=== PATIENT | female | born 2000 ===

== ENCOUNTER → 2022-09-23 | Outpatient (CLI) | payer OTHER ==
[2022-09-23 14:57] LABS: Hepatitis B Surface Antibody Negative (Negative)
== END | disposition home or self-care (01) ==
LOC: LAB 10:38
PROVIDERS: ATTEND Family Medicine
DX: T14.90XA Injury, unspecified, initial encounter (principal); W46.1XXA Contact with contaminated hypodermic needle, initial encounter; Y93.89 Activity, other specified; Y92.89 Other specified places as the place of occurrence of the external cause; Y99.8 Other external cause status
CPT/HCPCS: 36415; 86703; 86706; 86803; 87340

== ENCOUNTER → 2022-12-08 | Outpatient (CLI) | payer OTHER ==
[2022-12-09 15:54] LABS: Hepatitis B Surface Antibody Negative (Negative); Hepatitis B Surface Antigen Negative (Negative)
== END | disposition home or self-care (01) ==
LOC: LAB 14:40
PROVIDERS: ATTEND Family Medicine
DX: Z77.21 Contact with and (suspected) exposure to potentially hazardous body fluids (principal)
CPT/HCPCS: 36415; 86703; 86706; 86803; 87340

== ENCOUNTER → 2023-03-23 | Outpatient (CLI) | payer OTHER ==
[2023-03-24 09:12] LABS: Hepatitis B Surface Antibody Positive (Negative)
[2023-03-24 09:25] LABS: Hepatitis B Surface Antigen Negative (Negative)
== END | disposition home or self-care (01) ==
LOC: LAB 11:48
PROVIDERS: ATTEND Family Medicine
DX: Z20.9 Contact with and (suspected) exposure to unspecified communicable disease (principal); S61.239D Puncture wound without foreign body of unspecified finger without damage to nail, subsequent encounter; X58.XXXD Exposure to other specified factors, subsequent encounter
CPT/HCPCS: 36415; 86703; 86706; 86803; 87340

== ENCOUNTER 2023-08-14 12:45 | Emergency (ER) | payer OTHER ==
[~2023-08-14] VITALS: Ht 152.4 cm; Wt 45.3 kg
[2023-08-14] MEDS ORDERED: RALT400T PO (13:18)
[2023-08-14] MEDS ORDERED: TENO300T9 PO (13:18)
[2023-08-14] MEDS ORDERED: EMTR200C5 PO (13:18)
[2023-08-14 13:27] VITALS: BP 111/76; PULSE 75; RESP 18; TEMP 97.8; O2SAT 99
[2023-08-14 13:48] LABS: Hepatitis B Surface Antibody Positive (Negative)
[2023-08-15 15:13] LABS: Hepatitis B Surface Antigen Negative (Negative)
== END 2023-08-14 13:35 | disposition home or self-care (01) ==
LOC: ER 12:45
DX: T14.90XA Injury, unspecified, initial encounter (principal); Z77.21 Contact with and (suspected) exposure to potentially hazardous body fluids; Z79.899 Other long term (current) drug therapy; W46.0XXA Contact with hypodermic needle, initial encounter; Y93.89 Activity, other specified; Y92.89 Other specified places as the place of occurrence of the external cause; Y99.0 Civilian activity done for income or pay
CPT/HCPCS: 36415; 86703; 86706; 86803; 87340

== ENCOUNTER → 2023-09-27 | Outpatient (CLI) | payer OTHER ==
[~2023-09-27] MED LIST: EMTR200C5 PO; RALT400T PO; TENO300T9 PO
[2023-09-29 08:30] LABS: Hepatitis B Surface Antibody Positive (Negative)
[2023-09-29 08:42] LABS: Hepatitis B Surface Antigen Negative (Negative)
== END | disposition home or self-care (01) ==
LOC: LAB 13:07
PROVIDERS: ATTEND Family Medicine
DX: Z00.00 Encounter for general adult medical examination without abnormal findings (principal); W46.1XXA Contact with contaminated hypodermic needle, initial encounter; Y93.89 Activity, other specified; Y92.89 Other specified places as the place of occurrence of the external cause; Y99.8 Other external cause status
CPT/HCPCS: 36415; 86703; 86706; 86803; 87340

== ENCOUNTER → 2024-02-14 | Outpatient (CLI) | payer OTHER ==
[2024-02-16 08:58] LABS: Hepatitis B Surface Antibody Positive (Negative)
[2024-02-16 09:09] LABS: Hepatitis B Surface Antigen Negative (Negative)
== END | disposition home or self-care (01) ==
LOC: LAB 10:16
PROVIDERS: ATTEND Family Medicine
DX: S61.432D Puncture wound without foreign body of left hand, subsequent encounter (principal); Z77.21 Contact with and (suspected) exposure to potentially hazardous body fluids; W46.1XXD Contact with contaminated hypodermic needle, subsequent encounter
CPT/HCPCS: 36415; 86703; 86706; 86803; 87340